=== PATIENT | male | born 1930 | race Caucasian/White ===

== ENCOUNTER → 2016-12-19 | Outpatient (CLI) | payer MEDICARE, BC ==
[~2016-12-19] MED LIST: ADVIL200 MG PO; ASPIRIN 81M81 MG/TA2 PO; AVODART 0.5MG0.5 MG PO; B-121000 MCG PO; B-6100 MG PO; CENTRUM SILVER1 CTB PO; CLARITIN 1010 MG/TAB PO; FLOMAX 0.40.4 MG/CAP PO; LIPOFLAVONOID1 GEL TP; NATURAL E400 IU PO; OCUVITE1 TA1 PO; UROCIT-K 1010 MEQ PO; VITAMIN C500 MG PO; VITAMIN D1000 IU PO; ZITHROMAX Z PA250 MG PO
== END ==
LOC: COL.RAD 08:00
DX: R91.1 Solitary pulmonary nodule (principal); R09.89 Other specified symptoms and signs involving the circulatory and respiratory systems; I65.21 Occlusion and stenosis of right carotid artery; N20.0 Calculus of kidney; J98.4 Other disorders of lung; J98.11 Atelectasis
CPT/HCPCS: Q9967

== ENCOUNTER → 2017-02-22 | Outpatient (CLI) | payer MEDICARE, BC ==
[2017-02-22 13:43] LABS: COLLECTION METHOD CLEAN CATCH
[2017-02-22 13:55] LABS: MUCOUS Present /lpf; PH 5 (5-8); SQUAMOUS EPITHELIAL None Seen /hpf; URINE APPEARANCE Hazy; URINE BACTERIA None Seen /hpf; URINE BILIRUBIN Negative (NEGATIVE); URINE BLOOD 2+ (NEGATIVE); URINE COLOR Yellow; URINE GLUCOSE Negative (NEGATIVE); URINE KETONE Negative (NEGATIVE); URINE LEUKOCYTE ESTERASE 3+ (NEGATIVE); URINE NITRATE Negative (NEGATIVE); URINE PROTEIN(semi-quant) Negative (NEGATIVE); URINE RBC 20-50 /hpf; URINE UROBILINOGEN Negative (NEGATIVE)
== END ==
LOC: COL.LAB 13:00
PROVIDERS: Urology
DX: R30.0 Dysuria (principal)